=== PATIENT | male | born 1945 | race Caucasian/White ===

== ENCOUNTER → 2018-03-30 | Outpatient (CLI) | payer MEDICARE, BC | LOC: M WUC 16:11 | DX: M25.561 Pain in right knee (principal) | CPT/HCPCS: 73564 ==

== ENCOUNTER → 2020-03-25 | Outpatient (REF) | payer MEDICARE, BC ==
[2020-03-25 19:28] LABS: CREATININE, URINE 67.3 MG/DL; CREATININE,RANDOM URINE 67.3 MG/DL; MALB URINE SIEMENS 8.4 MG/L; MAU/CREAT RATIO 12.4 MCG/MG (0.0-30.0)
== END ==
LOC: M LAB REF 16:59
PROVIDERS: ATTEND Internal Medicine Endocrinology, Diabetes & Metabolism
DX: E11.65 Type 2 diabetes mellitus with hyperglycemia (principal)

== ENCOUNTER → 2021-07-16 | Outpatient (REF) | payer MEDICARE | LOC: M LAB REF 17:40 | PROVIDERS: ATTEND Physician Assistant | DX: M75.51 Bursitis of right shoulder (principal); L02.413 Cutaneous abscess of right upper limb ==

== ENCOUNTER → 2021-08-14 | Outpatient (REF) | payer MEDICARE ==
[2021-08-14 17:37] LABS: CREATININE, URINE 98.8 MG/DL; MALB URINE SIEMENS 12.2 MG/L; MAU/CREAT RATIO 12.3 MCG/MG (0.0-30.0)
== END ==
LOC: M LAB REF 16:34
PROVIDERS: ATTEND Nurse Practitioner Family
DX: E11.65 Type 2 diabetes mellitus with hyperglycemia (principal)

== ENCOUNTER 2024-08-01 11:54 | Day surgery (SDC) | payer MEDICARE, BC ==
[~2024-08-01] VITALS: Ht 170.2 cm; Wt 74.4 kg
[~2024-08-01 11:54] MED LIST: ATOR80TA59 PO; COQ150CH PO; GLIP2.5T6 PO; JANU100T PO; JARD1TAB3 PO; LISI40TA4 PO; METF-877 PO; METO25TA4 PO; ceFAZolin SOD 2 GM in IV 1 EA IV ONE
[2024-08-01] MEDS ORDERED: SUGAMMADEX SODIUM 500 MG/5 ML VIAL (BRIDION) As Ordered ONE (12:05)
[2024-08-01] MEDS ORDERED: LIDOCAINE 2% 100MG/5ML SDV (FOR ANES.) As Ordered ONE (12:05)
[2024-08-01] MEDS ORDERED: KETOROLAC 60MG 2ML VIAL As Ordered ONE (12:05)
[2024-08-01] MEDS ORDERED: ONDANSETRON 4MG 2ML VIAL As Ordered ONE (12:05)
[2024-08-01] MEDS ORDERED: ACETAMINOPHEN 1000MG/100ML IV BAG As Ordered ONE (12:05)
[2024-08-01] MEDS ORDERED: ROCURONIUM BROMIDE 50MG/5ML VIAL As Ordered ONE (12:05)
[2024-08-01] MEDS ORDERED: propofoL 200 MG/20 ML VIAL As Ordered ONE (12:05)
[2024-08-01] MEDS ORDERED: fentaNYL 100 MCG/2 ML INJECTION As Ordered ONE (12:06)
[2024-08-01] MEDS ORDERED: LR 1,000 ML IV SCH (13:00)
[2024-08-01] MEDS ORDERED: PHENYLephrine 500MCG 5ML (100MCG/ML) SYRINGE As Ordered ONE (14:54)
[2024-08-01] MEDS ORDERED: fentaNYL 100 MCG/2 ML INJECTION IV PRN (15:15)
[2024-08-01] MEDS ORDERED: GLUCOSE 4 GM CHEW PO PRN (15:30)
[2024-08-01] MEDS ORDERED: DEXTROSE 50% 50ML SYRINGE IV PRN (15:30)
[2024-08-01] MEDS: INSULIN LISPRO (NovoLOG) PER UNIT SC PRN (15:42)
[2024-08-01] MEDS: oxyCODONE 5MG TAB PO PRN (15:59)
[2024-08-01] MEDS: ONDANSETRON 4MG 2ML VIAL IV PRN (15:59)
[2024-08-01 16:25] VITALS: BP 147/74; TEMP 98; O2SAT 98
[2024-08-01] MEDS ORDERED: NS (Normal Saline) 0.9% 1,000 ML IV SCH (17:00)
[2024-08-01] MEDS ORDERED: traMADol 50 MG TAB PO PRN (17:00)
== END 2024-08-01 17:00 | disposition home or self-care (01) ==
LOC: M SDC 11:54
PROVIDERS: ATTEND Surgery
DX: K40.90 Unilateral inguinal hernia, without obstruction or gangrene, not specified as recurrent (principal); I10 Essential (primary) hypertension; E78.5 Hyperlipidemia, unspecified; E11.9 Type 2 diabetes mellitus without complications; K21.9 Gastro-esophageal reflux disease without esophagitis; Z79.84 Long term (current) use of oral hypoglycemic drugs; Z79.899 Other long term (current) drug therapy
CPT/HCPCS: 49650; C1781; J0131; J0665; J1100; J1815; J1885; J2371; J2405; J3010; S2900

== ENCOUNTER 2025-03-30 13:01 | Emergency (ER) | payer MEDICARE, BC ==
[~2025-03-30] VITALS: Ht 170.2 cm; Wt 73.2 kg
[~2025-03-30 13:01] MED LIST changes: +GLIP2.5T46 PO; -GLIP2.5T6 PO; +LISI40TA10 PO; -LISI40TA4 PO; -ceFAZolin SOD 2 GM in IV 1 EA IV ONE
[2025-03-30] MEDS: LIDOCAINE 2% W/EPINEPHrine 20 ML VIAL **PRES FREE INJ ONE (15:25)
[2025-03-30] MEDS: TETANUS/DIPHTH/ACEL. PERTUSSIS 0.5 ML SYR IM.IMMUN ONE (15:34)
[2025-03-30 16:07] VITALS: BP 165/88; TEMP 96.9; O2SAT 100
== END 2025-03-30 16:10 | disposition home or self-care (01) ==
LOC: M ED 13:01
DX: S01.01XA Laceration without foreign body of scalp, initial encounter (principal); W22.8XXA Striking against or struck by other objects, initial encounter; I10 Essential (primary) hypertension; E11.9 Type 2 diabetes mellitus without complications; Y92.009 Unspecified place in unspecified non-institutional (private) residence as the place of occurrence of the external cause; Y93.89 Activity, other specified; Y99.9 Unspecified external cause status; Z79.02 Long term (current) use of antithrombotics/antiplatelets; Z79.4 Long term (current) use of insulin; Z79.899 Other long term (current) drug therapy; Z23 Encounter for immunization